=== PATIENT | female | born 2000 | race Caucasian/White ===

== ENCOUNTER 2021-10-28 08:04 | Emergency (ER) | payer OTHER ==
[~2021-10-28] VITALS: Ht 167.6 cm; Wt 70.0 kg
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
[2021-10-28] MEDS ORDERED: IOHEXOL 300 MG/ML 75 ML VIAL. IV ONE (09:30)
[2021-10-28 09:38] LABS: BACTERIA,URINE FEW /HPF (0-FEW); CLARITY,URINE CLOUDY; COLOR,URINE YELLOW; GLUCOSE,URINE NEG (NEG); NITRITE,URINE NEG (NEG); SQUAMOUS EPITHELIAL CELL,UR MANY /LPF; WBC,URINE 20-40 /HPF (0-4)
[2021-10-28 10:00] LABS: BASO % 0 % (0-3); EOS # 0.2 x10^3/uL (0.0-0.7); EOS % 3 % (0-3); HEMOGLOBIN 13.3 g/dL (12.0-15.5); LYMPH # 1.4 x10^3/uL (1.0-4.8); LYMPH % 29 % (24-48); MEAN CORPUSCULAR HEMOGLOBIN 29 pg (25-35); MEAN CORPUSCULAR HGB CONC 33 g/dL (31-37); MEAN CORPUSCULAR VOLUME 88 fL (79-100); MONO # 0.5 x10^3/uL (0.0-1.1); MONO % 9 % (0-9); NEUT # 2.8 x10^3uL (1.8-7.7); NEUT % 58 % (31-73); PLATELET COUNT 284 x10^3/uL (140-400); RED BLOOD COUNT 4.57 x10^6/uL (3.50-5.40); RED CELL DISTRIBUTION WIDTH 13.1 % (11.5-14.5); WHITE BLOOD COUNT 4.9 x10^3/uL (4.0-11.0)
[2021-10-28 10:03] LABS: U PREG PATIENT NEGATIVE (NEG)
[2021-10-28 10:12] LABS: CALCIUM 8.7 mg/dL (8.5-10.1); CREATININE 0.6 mg/dL (0.6-1.0); POTASSIUM 3.5 mmol/L (3.5-5.1)
[2021-10-28 10:18] LABS: ALBUMIN 2.9 g/dL (3.4-5.0); ALBUMIN/GLOBULIN RATIO 0.7 (1.0-1.7); TOTAL BILIRUBIN 0.5 mg/dL (0.2-1.0)
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
[2021-10-28 11:37] VITALS: BP 112/72
== END 2021-10-28 11:38 | disposition home or self-care (01) ==
LOC: ER 08:04
DX: S30.1XXA Contusion of abdominal wall, initial encounter (principal); V43.62XA Car passenger injured in collision with other type car in traffic accident, initial encounter; Y93.89 Activity, other specified; Y92.89 Other specified places as the place of occurrence of the external cause; Y99.8 Other external cause status
CPT/HCPCS: 36415; 74177; 80053; 81001; 81025; 83690; 85025; 87086; 99285; Q9967